=== PATIENT | female | born 1980 | race Caucasian/White ===

== ENCOUNTER 2018-06-08 11:48 | Emergency (ER) | payer MEDICAID ==
[2018-06-08 12:34] LABS: ADD UMIC NO; UR ASCORBIC ACID 20 mg/dL (NEGATIVE); UR BILIRUBIN (Dip) NEGATIVE (NEGATIVE); UR BLOOD (Dip) NEGATIVE (NEGATIVE); UR CLARITY CLEAR (CLEAR); UR COLOR YELLOW (YELLOW); UR GLUCOSE (Dip) NEGATIVE (NEGATIVE); UR KETONES (Dip) NEGATIVE (NEGATIVE); UR LEUKOCYTE ESTERASE (Dip) NEGATIVE Leu/ul (NEGATIVE); UR NITRITE (Dip) NEGATIVE (NEGATIVE); UR SPECIFIC GRAVITY (Dip) 1.025 (1.003-1.030); UR TOTAL PROTEIN (Dip) NEGATIVE (NEGATIVE); UR UROBILINOGEN (Dip) NEGATIVE (NEGATIVE)
== END 2018-06-08 15:53 | disposition home or self-care (01) ==
LOC: FTE 11:48
DX: R10.2 Pelvic and perineal pain (principal)
CPT/HCPCS: 76830; 76856; 81003; 81025; 99284-25

== ENCOUNTER 2019-04-10 14:45 | Emergency (ER) | payer MEDICAID ==
[2019-04-10] MEDS: IBUPROFEN 800 MG TAB PO (16:13)
[2019-04-10 16:17] LABS: URINE PH (Dip) POC 5.5 (5.0-8.5)
[2019-04-10 16:17] LABS: URINE BLOOD (Dip) POC 2+ (NEGATIVE); URINE GLUCOSE (Dip) POC Negative (NEGATIVE); URINE KETONES (Dip) POC Negative (NEGATIVE); URINE LEUKOCYTE EST (Dip) POC Trace (NEGATIVE); URINE NITRITE (Dip) POC Negative (NEGATIVE); URINE TOTAL PROTEIN POC Negative (NEGATIVE)
== END 2019-04-10 17:49 | disposition home or self-care (01) ==
LOC: FTE 14:45
DX: M25.551 Pain in right hip (principal); M54.5 Low back pain
CPT/HCPCS: 73510; 81003; 81025; 99283-25